=== PATIENT | female | born 1960 | race Caucasian/White ===

== ENCOUNTER 2018-01-12 16:16 | Emergency (ER) | payer SELFPAY ==
[2018-01-12 16:51] VITALS: BP 150/62
== END 2018-01-12 16:59 | disposition left against medical advice (07) ==
LOC: ER 16:16
DX: R22.0 Localized swelling, mass and lump, head (principal); Z53.21 Procedure and treatment not carried out due to patient leaving prior to being seen by health care provider

== ENCOUNTER → 2019-03-16 | Outpatient (CLI) | payer OTHER ==
--- NOTE | 2019-03-16 11:49 | RAD ---
DATE: 03/16/2019 EXAM: DIGITAL DIAGNOSTIC BILATERAL, BREAST LEFT HISTORY: Left breast mass COMPARISON: None available This study was interpreted with the benefit of Computerized Aided Detection (CAD). Breast Density: SCATTERED The breast parenchyma shows scattered fibroglandular densities. Breast parenchyma level B. FINDINGS: There is a large 4.3 cm irregular mass in the upper inner left breast which corresponds to the area of palpable concern. There is diffuse skin thickening on the left. There is skin retraction overlying the dominant mass. There are several additional small scattered irregular breast nodules both medially and laterally, as best demonstrated on CC tomosynthesis images, likely representing satellite lesions. No right breast mass is seen. There are scattered benign type calcifications on the right. No suspicious right breast calcifications are evident. Left breast ultrasound, 03/16/2019: The entire left breast was scanned. At the 10:00 location of the right breast approximately 4 cm from the nipple there is a large hypoechoic mass corresponding to the patient's palpable abnormality. There is overlying skin thickening and retraction. This mass measures 3.2 cm in greatest diameter sonographically. There is posterior acoustic shadowing. The features are highly suspicious for malignancy. The remainder of the left breast demonstrates a heterogeneous echo pattern. At the 8:00 location approximately 2 cm from the nipple there is a irregular 6 mm hypoechoic nodule with posterior acoustic shadowing. At the 1:00 location approximately 6 cm from the nipple there is a small hypoechoic nodule with angulated margins. It measures approximately 1.3 cm. We also examined the left axilla. There are 2 elongated lymph nodes with internal echogenicity compatible with benign fatty replaced nodes. There is a mildly prominent 1 x 2 cm lymph node which demonstrates a normal echogenic hilum and a hypoechoic cortex. Its margins are smooth. No definite pathologic axillary node is identified. IMPRESSION: 1. Large mass in the upper inner left breast compatible with a primary breast malignancy. Ultrasound-guided biopsy is suggested for further evaluation. 2. Several additional irregular left breast nodules are identified mammographically and sonographically, probably representing satellite nodules. Note: The lab animal technologist notified the patient of our recommendation for biopsy, at the time of the exam. The patient will follow-up with the ordering physician. BI-RADS CATEGORY: 5 HIGHLY SUGGESTIVE MALIGNANCY RECOMMENDED FOLLOW-UP: BIO BIOPSY RECOMMENDED PQRS compliance statement: Patient information was entered into a reminder system with a target due date for the next mammogram. Mammography is a sensitive method for finding small breast cancers, but it does not detect them all and is not a substitute for careful clinical examination. A negative mammogram does not negate a clinically suspicious finding and should not result in delay in biopsying a clinically suspicious abnormality. "Our facility is accredited by the [employer] Mammography Program."
== END | disposition home or self-care (01) ==
LOC: MAMMO 09:32
PROVIDERS: ATTEND Family Medicine
DX: N64.89 Other specified disorders of breast (principal); N63.22 Unspecified lump in the left breast, upper inner quadrant
CPT/HCPCS: 76641; 77066

== ENCOUNTER 2021-05-23 17:09 | Emergency (ER) | payer MEDICARE, OTHER ==
[~2021-05-23] VITALS: Ht 160 cm; Wt 139.5 kg
--- NOTE | 2021-05-23 17:36 | PHYS DOC ---
Past History Past Medical History: Diabetes, Hypertension (MCKAY DONNELLY DO) Past Surgical History: No Surgical History (MCKAY DONNELLY DO) Alcohol Use: None Drug Use: None (MCKAY DONNELLY DO) General Adult EDM: Chief Complaint: Altered mental status HPI: HPI: 60-year-old female presents via EMS as a code stroke. The patient was reported to be found down at her residence. When EMS arrived she was breathing but had considerable saliva in her mouth. She was unable to speak or follow commands at all. They should suction the patient and were able to get good respirations and O2 saturation. They packaged her up and brought her to the emergency room. On arrival to the emergency room she began to say the word ouch. She also began to move her extremities. Patient is unable to give me any history herself. (MCKAY DONNELLY DO) Review of Systems: Review of Systems: Unable to evaluate due to patient mental status (MCKAY DONNELLY DO) Allergies: Allergies: Allergies Coded Allergies Type Severity Reaction Last Updated Verified No Known Drug Allergies 01/12/18 No (MCKAY DONNELLY DO) Physical Exam: PE: Constitutional: Well developed, well nourished, morbidly obese, moderate acute distress, non-toxic appearance. [] HENT: Normocephalic, atraumatic, bilateral external ears normal, oropharynx moist, no oral exudates, nose normal. [] Eyes: PERRLA, EOMI, conjunctiva normal, no discharge. [] Neck: Normal range of motion, no tenderness, supple, no stridor. [] Cardiovascular: Heart rate regular rhythm, no murmur [] Lungs & Thorax: Bilateral breath sounds clear to auscultation [] Abdomen: Bowel sounds normal, soft, obvious umbilical hernia, feces on her legs. [] Skin: Warm, dry, no erythema, no rash. [] Back: No tenderness, no CVA tenderness. [] Extremities: No tenderness, no cyanosis, no clubbing. [] Neurologic: Repeating the same phrases over and over, moving all 4 extremities. [] Psychologic: Very anxious [] (MCKAY DONNELLY DO) EKG: EKG: [] (MCKAY DONNELLY DO) Radiology/Procedures: Radiology/Procedures: [] Impressions: Exam: CT head INDICATION: Stroke TECHNIQUE: Sequential axial images through the head were obtained without the administration of IV contrast. Exposure: One or more of the following in the visualized dose reduction techniques were utilized for this examination: 1. Automated exposure control 2. Adjustment of the MA and/or KV according to patient size 3. Use of iterative of reconstructive technique Comparisons: None FINDINGS: Evaluation is markedly limited secondary to technical factors. No large focal parenchymal lesion or hemorrhage is identified. There is no midline shift or sulcal effacement. No large acute vascular territory infarction is identified. Wasserman-white distinction is preserved. The ventricular system is within normal limits without compression hydrocephalus. The basal cisterns are well maintained. The visualized portions of the paranasal sinuses and mastoid air cells are well- pneumatized. No acute fractures. IMPRESSION: No large acute intracranial abnormality. Evaluation is limited. Recommend repeat scanning when patient's condition improves. FOR INTERNAL CODING PURPOSES Critical result: Findings discussed with Mckay Donnelly at 05/23/2021 5:31 PM. RESULT CODE: (C) Electronically signed by: Analia Marx MD (05/23/2021 5:35 PM) [facility] DICTATED AND SIGNED BY: ANALIA MARX MD DATE: 05/23/211728 CC: MCKAY DONNELLY DO; PRATIMA MANCUSO ~MTH0 0 (MCKAY DONNELLY DO) Heart Score: C/O Chest Pain: N/A Risk Factors: Risk Factors: DM, Current or recent (<one month) smoker, HTN, HLP, family history of CAD, obesity. Risk Scores: Score 0 - 3: 2.5% MACE over next 6 weeks - Discharge Home Score 4 - 6: 20.3% MACE over next 6 weeks - Admit for Clinical Observation Score 7 - 10: 72.7% MACE over next 6 weeks - Early Invasive Strategies (MCKAY DONNELLY DO) C/O Chest Pain: No (ION HUTSON MD) Course & Med Decision Making: Course & Med Decision Making Pertinent Labs and Imaging studies reviewed. (See chart for details) After the patient got moved to the room, she became suddenly much more alert and aware. She does not remember what happened. The last thing she remembers is that she was taking her new diabetes medication and went to lay down. Then she woke up in the hospital room and has no idea what happened. She just started this new diabetes medication. She cannot member what is called. She does have a history of breast cancer with metastasis. No other new medications. No history of seizures. The patient has a fever in the emergency room of 103.2. She did not realize that she had a fever. She has not been feeling ill. She has had diarrhea since starting this new medication for the last couple days. She is moving all extremities and is completely coherent at this time. We are giving her 30 mL/kg of ideal body weight fluids, a gram of Tylenol, blood cultures have been drawn, lactic acid has been drawn. I will cover her with Zosyn. The patient's head CT had significant artifact due to patient motion and I was holding her head still during the scan. I am signing the patient out to Dr. Hutson at 1800. [] (MCKAY DONNELLY DO) Course & Med Decision Making Patient care handed off to me at checkout pending work-up. Patient is critically ill and complicated. Patient with metastatic cancer to the brain, to the chest and vertebra. Vital signs with fever, tachycardia and tachypnea with an elevated lactate. Cultures obtained, bank, Zosyn and cefepime given. Given IV fluid resuscitation x3 L. Discussed with family the need for hospitalization for continued evaluation and treatment of her syncopal episode, most likely secondary to metastatic disease to the brain, and sepsis as well as febrile neutropenia. Family requested to be transferred to as that is where they are cancer doctor is. Discussed patient with who accepted. (ION HUTSON MD) Dragon Disclaimer: Dragon Disclaimer: This electronic medical record was generated, in whole or in part, using a voice recognition dictation system. (MCKAY DONNELLY DO) Departure Departure: Impression: Primary Impression: Fever Additional Impression: Altered mental status Referrals: PRATIMA MANCUSO (PCP) MCKAY DONNELLY DO May 23, 2021 17:36 ION HUTSON MD May 23, 2021 21:04
--- NOTE | 2021-05-23 17:37 | RAD ---
Exam: CT head INDICATION: Stroke TECHNIQUE: Sequential axial images through the head were obtained without the administration of IV co ntrast. Exposure: One or more of the following in the visualized dose reduction techniques were utilized for this examination: 1. Automated exposure control 2. Adjustment of the MA and/or KV according to patient size 3. Use of iterative of reconstructive technique Comparisons: None FINDINGS: Evaluation is markedly limited secondary to technical factors. No large focal parenchymal lesion or hemorrhage is identified. There is no midline shift or sulcal ef facement. No large acute vascular territory infarction is identified. Wasserman-white distinction is preserved. The ventricular system is within normal limits without compression hydrocephalus. The basal cisterns are well maintained. The visualized portions of the paranasal sinuses and mastoid air cells are well-pneumatized. No acute fractures. IMPRESSION: No large acute intracranial abnormality. Evaluation is limited. Recommend repeat scanning when patien t's condition improves. FOR INTERNAL CODING PURPOSES Critical result: Findings discussed with Bernardo Hernandez at 05/23/2021 5:31 PM. RESULT CODE: (C) Electronically signed by: Analia Samuel MD (05/23/2021 5:35 PM) [facility]
[2021-05-23] MEDS ORDERED: ACETAMINOPHEN 500 MG TABLET PO ONE ×2 (17:45→17:47)
[2021-05-23] MEDS ORDERED: IV NORMAL SALINE 1,000ML 1,000 ML IV SCH (17:45)
[2021-05-23 17:56] LABS: BASO % 1 % (0-3); CALCIUM 8.6 mg/dL (8.5-10.1); CREATININE 1.9 mg/dL (0.6-1.0); EOS % 1 % (0-3); GFR 26.9; HEMATOCRIT 34.8 % (36.0-47.0); HEMOGLOBIN 11.1 g/dL (12.0-15.5); LYMPH # 0.2 x10^3/uL (1.0-4.8); LYMPH % 33 % (24-48); MEAN CORPUSCULAR HEMOGLOBIN 31 pg (25-35); MEAN CORPUSCULAR HGB CONC 32 g/dL (31-37); MEAN CORPUSCULAR VOLUME 97 fL (79-100); MONO % 1 % (0-9); NEUT # 0.3 x10^3uL (1.8-7.7); NEUT % 65 % (31-73); PLATELET COUNT 321 x10^3/uL (140-400); POTASSIUM 4.4 mmol/L (3.5-5.1); RED CELL DISTRIBUTION WIDTH 16.3 % (11.5-14.5)
[2021-05-23] MEDS ORDERED: PIPERACILLIN/TAZOBACTAM 3.375 GM in IV NORMAL SALINE 50ML 50 ML IV ONE (18:00)
[2021-05-23 18:04] LABS: ALBUMIN 2.8 g/dL (3.4-5.0); ALBUMIN/GLOBULIN RATIO 0.7 (1.0-1.7); TOTAL BILIRUBIN 0.6 mg/dL (0.2-1.0); TOTAL PROTEIN 6.8 g/dL (6.4-8.2)
[2021-05-23] MEDS ORDERED: PIPERACILLIN/TAZOBACTAM 3.375 GM VIAL IV ONE (18:12)
[2021-05-23] MEDS ORDERED: IV NORMAL SALINE 50ML 50 ML ONE (18:12)
[2021-05-23 18:21] LABS: WHITE BLOOD COUNT 0.5 x10^3/uL (4.0-11.0)
[2021-05-23] MEDS ORDERED: VANCOMYCIN 1.5 GM in IV NORMAL SALINE 500ML 500 ML IV ONE (18:30)
--- NOTE | 2021-05-23 18:30 | EKG ---
[address] [address] Test Date: 2021-05-23 Test Time: 17:47:57 Pat Name: CAROLYNN JENKINS Department: Room: Gender: F Education Intern: : 1960 Requested By: MCKAY DONNELLY Order Number: [id number] Reading MD: Measurements Intervals [place] Rate: 130 P: 15 CA: 140 QRS: 3 QRSD: 90 T: 13 QT: 318 QTc: 475 Interpretive Statements SINUS TACHYCARDIA ATRIAL PREMATURE COMPLEX(ES) QRS(T) CONTOUR ABNORMALITY CONSISTENT WITH INFERIOR INFARCT AGE UNDETERMINED ABNORMAL ECG RI6.02 No previous ECG available for comparison
--- NOTE | 2021-05-23 18:40 | RAD ---
XR CHEST 1V INDICATION: fever . COMPARISON STUDY: 03/29/2019. FINDINGS: Lungs: Normal lung volume. Bilateral perihilar opacities. Pleura: No pleural effusion or pneumothorax. Heart and Mediastinum: Cardiomegaly. The great vessels of the thorax are normal. IMPRESSION: Bilateral perihilar opacities may represent interstitial edema or infection. Electronically signed by: Pb Culp MD (05/23/2021 6:37 PM) [facility]
[2021-05-23] MEDS ORDERED: IOHEXOL 350 MG/ML 100 ML VIAL. IV ONE (18:45)
[2021-05-23] MEDS ORDERED: CONTRAST GIVEN. MC PRN (18:45)
[2021-05-23] MEDS ORDERED: IV RINGERS SOLUTION,LACTATED 1,000 ML IV ONE (19:00)
[2021-05-23] MEDS ORDERED: ONDANSETRON PF 4 MG/2 ML VIAL. IVP ONE (19:15)
[2021-05-23] MEDS ORDERED: IV NORMAL SALINE 500ML 500 ML ONE (19:23)
[2021-05-23] MEDS ORDERED: VANCOMYCIN 1 GM VIAL. ONE (19:24)
--- NOTE | 2021-05-23 20:03 | RAD ---
EXAM: CTA HEAD AND NECK W/WO CONTRAST DATE: 05/23/2021 7:18 PM INDICATION: stroke workup TECHNIQUE: CTA angiogram of the head and neck was obtained after IV bolus administration of 60 cc of Isovue-370. The images were sent to workstation and multiplanar reconstructions were obtained. Multi planar reconstruction images to include MIP and 3-D reconstruction images are submitted. One or more of the following dose reduction techniques were utilized: Automated exposure control (AEC ), Adjustment of mA and/or kV according to patient size, Use of iterative reconstruction technique rothman ch as ASiR, CT scan done according to ALARA and image gently/image wisely COMPARISON: Noncontrast CT head done earlier the same day. FINDINGS: CTA Head: The visualized distal internal carotid arteries, anterior and middle cerebral arteries are patent and normal caliber. The distal vertebral arteries, basilar artery, and posterior cerebral arteries are p atent and normal caliber. No aneurysm or arteriovenous malformation is seen. CTA Neck: Right carotid: The right common carotid artery is patent and normal caliber. The carotid bifurcation is normal. No stenosis of the right internal carotid artery per NASCET criteria. The right external c arotid artery is patent. Left carotid: The left common carotid artery is patent and normal caliber. The carotid bifurcation is normal. No stenosis of the left internal carotid artery per NASCET criteria. The left external carot id artery is patent. Right vertebral: The right vertebral artery is patent and normal caliber. Left vertebral: The left vertebral artery is patent and normal caliber. The visualized portions of the aortic arch are normal. The origins of the brachiocephalic and subclav juliana arteries are normal. No cervical lymphadenopathy. The thyroid gland is normal. The parotid and submandibular glands are no rmal. Dental cavities. Innumerable sclerotic lesions throughout the visualized osseous structures. IMPRESSION: 1. No intracranial large vessel occlusion. 2. Innumerable sclerotic lesions throughout the visualized osseous structures consistent with osseous metastatic disease. 3. No stenosis of the cervical ICAs. 4. Dental cavities. PQRS Compliance Statement - Stenosis calculations for CT, MR and conventional angiography are based u mendy measurement of the distal ICA diameter in accordance with the NASCET methodology. Electronically signed by: Pb Culp MD (05/23/2021 8:01 PM) [facility]
[2021-05-23 20:08] LABS: BACTERIA,URINE MANY /HPF (0-FEW); BILIRUBIN,URINE NEG (NEG); CLARITY,URINE CLOUDY; COLOR,URINE YELLOW; GLUCOSE,URINE NEG (NEG); NITRITE,URINE NEG (NEG); RBC,URINE TNTC /HPF (0-2); SQUAMOUS EPITHELIAL CELL,UR OCC /LPF; UROBILINOGEN,URINE 0.2 mg/dL (0.2 mg/dL)
--- NOTE | 2021-05-23 20:24 | RAD ---
Exam: CT of chest, abdomen and pelvis without contrast INDICATION: Stroke workup, nausea, diarrhea TECHNIQUE: Sequential axial images through the chest, abdomen and pelvis obtained without IV contrast . Sagittal and coronal reformatted images were reconstructed from the axial data and reviewed. Exposure: One or more of the following in the visualized dose reduction techniques were utilized for this examination: 1. Automated exposure control 2. Adjustment of the MA and/or KV according to patient size 3. Use of iterative of reconstructive technique Comparisons: None FINDINGS: Visualized portions of the thyroid are unremarkable. No enlarged mediastinal lymph nodes are identifi ed. Heart size is normal. No pericardial effusion. Thoracic aorta has normal course and caliber. Pulmonar y artery is not enlarged. Airways are patent. No consolidation or pneumothorax. No suspicious lung nodules. No pleural effusion or thickening. Mild diffuse hepatic steatosis. Spleen, pancreas, adrenals are unremarkable. Gallbladder is mildly di stended. Mild right-sided perinephric stranding. No renal or ureteral calculi are identified. Bladder is decompressed not well evaluated. Uterus is nonenlarged. No abnormal adnexal mass. There is a ventral hernia containing loops of small bowel. No evidence for obstruction. Remainder lar ge and small bowel are unremarkable. Appendix is normal. No free intra-abdominal air or fluid. No obs truction. Abdominal aorta has a normal course and caliber. No enlarged intra-abdominal lymph nodes are identified. There are innumerable sclerotic lesions noted diffusely throughout the osseous structures. Postoperat marie changes of left mastectomy. IMPRESSION: 1. Mild right-sided perinephric stranding. 2. Postoperative changes of left-sided mastectomy. Innumerable sclerotic lesions noted throughout th e osseous structures representing diffuse metastatic disease. 3. Large ventral hernia in the midline lower abdomen containing loops of small bowel. No evidence fo r obstruction. Electronically signed by: Analia Samuel MD (05/23/2021 8:22 PM) [facility]
[2021-05-23 21:05] LABS: % ATYL 2 % (0-0); % BANDS 19 % (0-9); % BASOS 1 % (0-3); % EOS 1 % (0-5); % LYMPHS 31 % (24-48); % SEGS 46 % (35-66); NUCLEATED RBC 3
[2021-05-23 21:19] LABS: PLATELET CLUMP PRESENT; PLT ESTIMATE ADEQUATE (ADEQUATE)
[2021-05-23 21:21] LABS: BURR CELLS PRESENT; TEAR DROP CELLS OCC
[2021-05-23] MEDS ORDERED: CEFEPIME HCL 2 GM VIAL IV ONE (21:36)
[2021-05-23] MEDS ORDERED: IV NORMAL SALINE 100ML 100 ML ONE (21:36)
[2021-05-23] MEDS ORDERED: CEFEPIME HCL 2 GM in IV NORMAL SALINE 100ML 100 ML IV ONE (22:00)
[2021-05-23 22:21] VITALS: BP 105/63
[2021-05-24] MEDS ORDERED: CEFEPIME HCL 2 GM in IV NORMAL SALINE 100ML 100 ML IV SCH (06:00)
== END 2021-05-23 22:45 | disposition short-term general hospital (02) ==
LOC: ER 17:09
DX: R41.82 Altered mental status, unspecified (principal); R50.9 Fever, unspecified; E11.9 Type 2 diabetes mellitus without complications; I10 Essential (primary) hypertension; E66.01 Morbid (severe) obesity due to excess calories; Z20.822 Contact with and (suspected) exposure to COVID-19; Z68.43 Body mass index [BMI] 50.0-59.9, adult; Z85.3 Personal history of malignant neoplasm of breast; Z85.841 Personal history of malignant neoplasm of brain
CPT/HCPCS: 36415; 70450; 70496; 70498; 71045; 71250; 74176; 80053; 81001; 82803; 82947; 83605; 83735; 84484; 85007; 85025; 87040; 87077; 87086; 87186; 87205; 87426; 93005; 96365; 96366; 96367; 96368; 96375; 99285; C9803; J0692; J2405; J2543; J3370; J7030; J7040; J7120; Q9967; U0003; 99284-25

== ENCOUNTER 2021-11-05 17:18 | Emergency (ER) | payer MEDICARE, OTHER ==
[~2021-11-05] VITALS: Ht 160 cm; Wt 132.1 kg
[2021-11-05 17:20] VITALS: BP 173/81
--- NOTE | 2021-11-05 18:08 | PHYS DOC ---
Past History Past Medical History: Diabetes, Hypertension Additional Past Medical Histor: ca liver and breast, pt on chemo therapy; irreg heartbeat Past Surgical History: Other Additional Past Surgical Histo: mastectomy; left foot Alcohol Use: None Drug Use: None General Adult EDM: Chief Complaint: LOWER EXT PAIN HPI: HPI: '.. I got this sore on the leg--- my dog Bently .. Jumped up on my leg the other day and tore the skin... Ever since then it does not seem to want to heal and is draining a swollen...' Patient is a 61 year old female who presents with above complaints and concerns about skin infection with DM. Patient has been running high sugars at home. Patient is a known diabetic, hypertensive, morbid obesity,. Patient does have longstanding venous stasis changes. Pt. follows with Dr. Costa. No recent travel. No specific ill contacts. No history of immunosuppression other than her diabetes. Review of Systems: Review of Systems: Constitutional: Denies fever or chills Eyes: Denies change in visual acuity HENT: Denies nasal congestion or sore throat Respiratory: Denies cough or shortness of breath Cardiovascular: Denies chest pain or edema GI: Denies abdominal pain, nausea, vomiting, bloody stools or diarrhea : Denies dysuria Musculoskeletal: Denies back pain or joint pain Integument: Denies rash Neurologic: Denies headache, focal weakness or sensory changes Endocrine: Denies polyuria or polydipsia Lymphatic: Denies swollen glands Psychiatric: Denies depression or anxiety Family History: Family History: Noncontributory to presentation Current Medications: Current Meds: See nursing for home meds Allergies: Allergies: Allergies Coded Allergies Type Severity Reaction Last Updated Verified codeine Allergy Unknown 11/05/21 Yes pseudoephedrine Allergy Unknown 11/05/21 Yes Physical Exam: PE: Constitutional: no acute distress, non-toxic appearance. [] HENT: Normocephalic, atraumatic, bilateral external ears normal, oropharynx moist, no oral exudates, nose normal. [] Eyes: PERRLA, EOMI, conjunctiva normal, no discharge. [] Neck: Normal range of motion, no tenderness, supple, no stridor. [] Cardiovascular:Heart rate regular rhythm, no murmur [] Lungs & Thorax: Bilateral breath sounds clear to auscultation [] Abdomen: Bowel sounds normal, soft, no tenderness, no masses, no pulsatile masses. Morbidly obese Skin: Warm, dry, no erythema, no rash. [] Back: No tenderness, no CVA tenderness. [] Extremities: No tenderness, no cyanosis, no clubbing, ROM intact, bilateral lower leg edema and venous stasis. Patient has a avulsion type scrape to left lower olsen with surrounding erythema and drainage. This is area of the dog scraped. Neurologic: Alert and oriented X 3, normal motor function, normal sensory function, no focal deficits noted. [] Psychologic: Affect anxious judgement normal, mood normal. [] Current Patient Data: Vital Signs: Vital Signs Date Time Temp Pulse Resp B/P (MAP) Pulse Ox O2 Delivery O2 Flow Rate FiO2 11/05/21 17:20 99.1 104 20 173/81 (111) 97 Room Air EKG: EKG: [] Radiology/Procedures: Radiology/Procedures: [] Heart Score: C/O Chest Pain: N/A Risk Factors: Risk Factors: DM, Current or recent (<one month) smoker, HTN, HLP, family history of CAD, obesity. Risk Scores: Score 0 - 3: 2.5% MACE over next 6 weeks - Discharge Home Score 4 - 6: 20.3% MACE over next 6 weeks - Admit for Clinical Observation Score 7 - 10: 72.7% MACE over next 6 weeks - Early Invasive Strategies Course & Med Decision Making: Course & Med Decision Making Pertinent Labs and Imaging studies reviewed. (See chart for details) Patient use warm moist compresses of salt water or Epson salts 4 times a day. Then massage area Polysporin. Keep covered if drainage. Take Bactrim DS twice a day for next 7 days. Follow-up primary care. Return if any concerns. Patient follow-up with primary care advised must have better control of diabetes for wound to heal. Patient follow-up elevated blood pressure. Patient return if any concerns. Impression: 1. Abrasion of cellulitis left olsen 2. Venous stasis 3. Diabetes- glucose currently 438 ( had just finished eating. ) 4. Hypertension [] Dragon Disclaimer: Dragon Disclaimer: This electronic medical record was generated, in whole or in part, using a voice recognition dictation system. Departure Departure: Referrals: COSTA,PRATIMA (PCP) Scripts Sulfamethoxazole/Trimethoprim (BACTRIM DS TABLET) 1 Each Tablet 1 TAB PO BID for wound for 7 Days, #14 TAB 0 Refills Prov: ANIVAL CALLAWAY MD 11/05/21 Kenan Disclaimer This chart was dictated in whole or in part using Voice Recognition software in a busy, high-work load, and often noisy Emergency Department environment. It may contain unintended and wholly unrecognized errors or omissions. ANIVAL CALLAWAY MD Nov 05, 2021 18:08
[2021-11-05] MEDS ORDERED: SMZ/TMP 800/160MG TABLET. PO ONE (18:15)
[2021-11-05] MEDS ORDERED: DIPHTH,PERTUSS(ACELL),TET TOX 0.5 ML DISP.SYRIN. VAX IM ONE (18:15)
[2021-11-05] MEDS ORDERED: SULF1TAB24 PO (18:19)
[2021-11-05] MEDS ORDERED: cloNIDine TTS-2 1 PATCH PATCH TD ONE (18:30)
== END 2021-11-05 19:14 | disposition home or self-care (01) ==
LOC: ER 17:18
DX: S80.812A Abrasion, left lower leg, initial encounter (principal); L03.116 Cellulitis of left lower limb; I87.8 Other specified disorders of veins; E11.9 Type 2 diabetes mellitus without complications; I10 Essential (primary) hypertension; E66.01 Morbid (severe) obesity due to excess calories; Z68.43 Body mass index [BMI] 50.0-59.9, adult; W54.0XXA Bitten by dog, initial encounter; Y93.89 Activity, other specified; Y92.89 Other specified places as the place of occurrence of the external cause; Y99.8 Other external cause status
CPT/HCPCS: 82947; 90471; 90715; 99284